=== PATIENT | female | born 1995 | race Caucasian/White ===

== ENCOUNTER 2017-04-14 09:53 | Emergency (ER) | payer OTHER ==
[2017-04-14 10:09] VITALS: BP 132/88; TEMP 98.9; O2SAT 98
--- NOTE | 2017-04-14 10:24 | ED.PDOC ---
History of Present Illness - General Chief Complaint: General Stated Complaint: swollen,painful breasts Time Seen by Provider: 04/14/17 10:21 Source: patient Additional Information: 22 YEAR OLD WHITE FEMALE WHO IS HAD DELIVERED 4 DAYS AGO DECIDED NOT TO BREAST FEED NOW PRESENTS WITH PAINFUL BREAST WORSE LAST DAY NO FEVER CHILLS INVOLVES BOTH BREASTS SHE HAD NOT APPLIED ANY PRESSURE BANDAGE NEITHER PUMPED OUT THE BREAST - History of Present Illness Timing/Duration: 24 hours Severity: moderate Improving Factors: nothing Worsening Factors: nothing Associated Symptoms: denies symptoms Allergies/Adverse Reactions: Allergies NO KNOWN ALLERGY Allergy (Verified 05/09/14 22:15) Home Medications: Ambulatory Orders Acetamin W/Cod #3 Tab [Tylenol w/CODEINE #3] 1 ea PO Q6HR PRN #40 tab 04/14/17 Docusate Sodium [Stool Softener] 100 mg PO BID 04/14/17 Ibuprofen [Motrin] 800 mg PO Q8H 04/14/17 Review of Systems - Review of Systems Constitutional: States: no symptoms reported EENTM: States: no symptoms reported Respiratory: States: no symptoms reported Cardiology: States: no symptoms reported Gastrointestinal/Abdominal: States: no symptoms reported Genitourinary: States: no symptoms reported Musculoskeletal: States: no symptoms reported Skin: States: no symptoms reported Neurological: States: no symptoms reported Endocrine: States: no symptoms reported Hematologic/Lymphatic: States: no symptoms reported Past Medical History (General) - Patient Medical History Hx Stroke: No Hx Asthma: No Hx Congestive Heart Failure: No Hx Diabetes: No Hx Renal Disease: No Surgical History: no surgical history - Vaccination History Hx Tetanus, Diphtheria Vaccination: No Hx Influenza Vaccination: Yes Hx Pneumococcal Vaccination: No - Social History Hx Tobacco Use: No Hx Alcohol Use: Yes Hx Substance Use: No Hx Substance Use Treatment: No Hx Depression: No - Female History Patient is a Female of Child Bearing Age (10 -59 yrs old): Yes - post- 4 days Hx Last Menstrual Period: 05/10/13 Patient : No Expected Date of Delivery:: 02/16/14 Family Medical History - Family History Mother Family History: No Known Name: Arielle Jordan Living Status: Still Living Father Family History: No Known Name: Santiago Kita Living Status: Still Living Physical Exam - Physical Exam Eye Exam: bilateral normal Ears, Nose, Throat: hearing grossly normal, normal ENT inspection, normal pharynx Neck: non-tender, full range of motion, supple Respiratory: chest non-tender, lungs clear, normal breath sounds, no respiratory distress, no accessory muscle use - BREAST EXAM ENGORGED NO ABNORMAL BREAST DISCHARGE NO LOCAL TENDERNESS NO LYMPHADENOPATHY Cardiovascular/Chest: normal peripheral pulses, regular rate, rhythm, no edema Extremity: normal range of motion, non-tender, normal inspection Departure - Departure Clinical Impression: mastalgia Time of Disposition: 11:19 Disposition: Discharge to Home or Self Care Condition: Good Departure Forms: ED Discharge - Pt. Copy, Patient Portal Self Enrollment Diet: resume usual diet Referrals: LATANYA OREILLY MD [Primary Care Provider] - 1-2 Weeks Prescriptions: Acetamin W/Cod #3 Tab [Tylenol w/CODEINE #3] 1 ea PO Q6HR PRN #40 tab PRN Reason: Mild To Moderate Pain Home Medications: Ambulatory Orders Acetamin W/Cod #3 Tab [Tylenol w/CODEINE #3] 1 ea PO Q6HR PRN #40 tab 04/14/17 Docusate Sodium [Stool Softener] 100 mg PO BID 04/14/17 Ibuprofen [Motrin] 800 mg PO Q8H 04/14/17
== END 2017-04-14 11:24 | disposition home or self-care (01) ==
LOC: ER 09:53
DX: O91.22 Nonpurulent mastitis associated with the puerperium (principal)

== ENCOUNTER 2018-01-23 08:49 | Emergency (ER) | payer SELFPAY ==
[2018-01-23] MEDS ORDERED: ONDANSETRON ODT 8 MG TAB SL ONE (09:04)
[2018-01-23] MEDS ORDERED: SODIUM CHLORIDE 0.9% 1000ML 1,000 ML IVS ONE (09:04)
--- NOTE | 2018-01-23 10:52 | RAD ---
EXAM DESCRIPTION: Abdomen Series CLINICAL HISTORY: nv. ruq pain COMPARISON: None. FINDINGS: AP supine and upright views of the abdomen show a nonspecific, nonobstructive bowel gas pattern with no evidence for free intraperitoneal air. No air-filled dilated loops of small bowel are seen. No significant air-fluid levels are identified. No obvious organomegaly is seen. No abnormal calcifications are seen in the expected location of the renal collecting systems. Single view of the chest shows cardiac silhouette and pulmonary vasculature to be within normal limits. Lungs are normally aerated and clear IMPRESSION: Nonspecific abdominal series Electronically signed by: Dylon De Luna MD 01/23/2018 10:51 AM PATIENT RELATIONS COORDINATOR
--- NOTE | 2018-01-23 11:18 | US ---
EXAM DESCRIPTION: Abdomen,Limited CLINICAL HISTORY: ruq pain, nv 4d, elev lft COMPARISON: None. TECHNIQUE: Real-time sonographic images of the right upper quadrant of the abdomen are obtained. FINDINGS: Pancreas is unremarkable. The right lobe of the liver measures 16.9cm. The liver is diffusely homogeneous and normal in echogenicity. No focal hepatic mass is seen. The gallbladder is normally distended and contains multiple mobile foci of increased echogenicity with posterior acoustic shadowing.. No gallbladder wall thickening or pericholecystic fluid is seen. The common bile duct measures 7-10 mm in greatest diameter. Intrahepatic biliary ductal dilatation is seen. The right kidney measures 10.2 cm and is unremarkable. Visualized IVC and abdominal aorta are within normal limits. IMPRESSION: Cholelithiasis without ultrasound evidence of acute cholecystitis. Intra and extrahepatic biliary ductal dilatation is seen with common bile duct measuring up to 10 mm. This is worrisome for choledocholithiasis which is not seen on ultrasound imaging. Electronically signed by: Dylon De Luna MD 01/23/2018 11:16 AM [facility]
[2018-01-23] MEDS ORDERED: cefTRIAXone SODIUM 1 GM in SODIUM CHL 0.9% 50ML MIN-BAG+ 50 ML IVPB ONE (12:20)
[2018-01-23] MEDS ORDERED: cefTRIAXone SODIUM 1 GM VIAL ONE (12:23)
--- NOTE | 2018-01-23 12:23 | ED.PDOC ---
History of Present Illness - General Chief Complaint: Abdominal Pain Stated Complaint: abd pain/n/v Time Seen by Provider: 01/23/18 08:57 Source: patient Exam Limitations: no limitations - History of Present Illness Initial Comments: he patient to 22-year-old female presenting to the emergency secondary to right upper quadrant discomfort made worse by eating with associated nausea and vomiting. No fevers. Minimal pain to palpation of the right upper quadrant. Previously healthy. She does take control pills. No diarrhea. Timing/Duration: other - 4 days Severity: moderate Improving Factors: nothing - 4 days Worsening Factors: nothing Associated Symptoms: loss of appetite, malaise, nausea/vomiting Allergies/Adverse Reactions: Allergies NO KNOWN ALLERGY Allergy (Verified 01/23/18 09:01) Review of Systems - Review of Systems Constitutional: States: malaise EENTM: States: no symptoms reported Respiratory: States: no symptoms reported Cardiology: States: no symptoms reported Gastrointestinal/Abdominal: States: abdominal pain, constipation, nausea, vomiting Musculoskeletal: States: no symptoms reported Skin: States: no symptoms reported Neurological: States: no symptoms reported Endocrine: States: no symptoms reported All other Systems: No Change from Baseline Past Medical History (General) - Patient Medical History Hx Stroke: No Hx Asthma: No Hx Congestive Heart Failure: No Hx Diabetes: No Hx Renal Disease: No Surgical History: no surgical history - Vaccination History Hx Tetanus, Diphtheria Vaccination: No Hx Influenza Vaccination: No Hx Pneumococcal Vaccination: No Immunizations Up to Date: No - Social History Hx Tobacco Use: No Hx Alcohol Use: No Hx Substance Use: No Hx Substance Use Treatment: No Hx Depression: No - Female History Patient is a Female of Child Bearing Age (10 -59 yrs old): Yes Hx Last Menstrual Period: 05/10/13 Patient : No Expected Date of Delivery:: 02/16/14 Family Medical History - Family History Mother Family History: No Known Name: Arielle Jordan Living Status: Still Living Father Family History: No Known Name: Santiago East Living Status: Still Living Physical Exam - Physical Exam General Appearance: Alert, No apparent distress Eye Exam: bilateral normal Ears, Nose, Throat: normal ENT inspection, normal pharynx Neck: full range of motion, supple Respiratory: lungs clear, normal breath sounds, no respiratory distress, no accessory muscle use Cardiovascular/Chest: normal peripheral pulses, regular rate, rhythm, no edema Peripheral Pulses: radial,right: 2+, radial,left: 2+, dorsalis pedis,right: 2+, dorsalis pedis,left: 2+ Gastrointestinal/Abdominal: non tender - mild right upper quadrant discomfort but not consistent with peritonitis, soft Rectal Exam: deferred Back Exam: normal inspection, no CVA tenderness, no vertebral tenderness Extremity: normal range of motion, non-tender, normal inspection, no pedal edema , normal capillary refill Neurologic: real estate photographer II-XII nml as tested, alert, normal mood/affect, oriented x 3 Skin Exam: normal color Comments: Vital Signs - 24 hr 01/23/18 01/23/18 08:57 10:44 Temperature 98.0 F Pulse Rate [ 88 60 monitor] Respiratory 18 20 Rate Blood Pressure 125/87 127/82 [LA] O2 Sat by Pulse 98 99 Oximetry Progress - Progress Progress: 01/23/18 12:24 the patient's 22-year-old female presenting to the emergency roomwith right upper quadrant pain and nausea and vomiting of 4 days' duration. She has received a liter of IV fluids and a dose of Zofran. This has helped. Workup appears to show choledocholithiasis. There does not appear to be any significant infection at this time in regard to the gallbladder however the patient is receiving a dose of Rocephin prophylactically as well as for treatment of what appears to be a small urinary tract infection. The patient will be transferred to [facility] for GI evaluation with possible ERCP. Transferring for higher level of care. - Results/Orders Results/Orders: Laboratory Tests 01/23/18 01/23/18 01/23/18 09:03 09:10 09:43 WBC RBC Hgb Hct MCV MCH MCHC RDW Plt Count MPV Absolute Neuts (auto) Absolute Lymphs (auto) Absolute Monos (auto) Absolute Eos (auto) Absolute Basos (auto) Neutrophils % Lymphocytes % Monocytes % Eosinophils % Basophils % Sodium 136 Potassium 3.7 Chloride 103 Carbon Dioxide 23 Anion Gap 13.7 BUN 10 Creatinine 0.76 BUN/Creatinine Ratio 13.2 Random Glucose 79 Serum Osmolality 269.9 L Calcium 9.1 Total Bilirubin 1.5 H AST 126 H ALT 175 H Alkaline Phosphatase 62 Serum Total Protein 7.5 Albumin 4.1 Globulin 3.4 Albumin/Globulin Ratio 1.2 Amylase 32 Lipase 25 TSH 1.82 Serum HCG, Qual Negative Urine Color [place] H Urine Appearance Cloudy Urine pH 5.5 Ur Specific [place] >= 1.030 Urine Protein 30 Urine Glucose (UA) Negative Urine Ketones 40 H Urine Blood Small H Urine Nitrite Negative Urine Bilirubin Large Urine Urobilinogen 1.0 Ur Leukocyte Esterase Small H Urine RBC 5-10 H Urine WBC 5-10 H Ur Epithelial Cells 5-10 Urine Bacteria Rare 01/23/18 09:55 WBC 5.3 RBC 4.95 Hgb 14.7 Hct 44.4 MCV 89.6 MCH 29.6 MCHC 33.0 RDW 12.8 Plt Count 214 MPV 9.2 Absolute Neuts (auto) 2.80 Absolute Lymphs (auto) 1.80 Absolute Monos (auto) 0.50 Absolute Eos (auto) 0.20 Absolute Basos (auto) 0.00 Neutrophils % 52.9 Lymphocytes % 33.9 Monocytes % 9.3 H Eosinophils % 3.2 Basophils % 0.7 Sodium Potassium Chloride Carbon Dioxide Anion Gap BUN Creatinine BUN/Creatinine Ratio Random Glucose Serum Osmolality Calcium Total Bilirubin AST ALT Alkaline Phosphatase Serum Total Protein Albumin Globulin Albumin/Globulin Ratio Amylase Lipase TSH Serum HCG, Qual Urine Color Urine Appearance Urine pH Ur Specific [place] Urine Protein Urine Glucose (UA) Urine Ketones Urine Blood Urine Nitrite Urine Bilirubin Urine Urobilinogen Ur Leukocyte Esterase Urine RBC Urine WBC Ur Epithelial Cells Urine Bacteria right upper quadrant ultrasound shows what appears to be choledocholithiasis without cholecystitis. Common bile duct measures up to 1 cm with associated intrahepatic biliary ductal dilation. There are gallstones in the gallbladder. Departure - Departure Clinical Impression: Choledocholithiasis, Cystitis Disposition: Transfer to Hospital Referrals: Freya Lugo NP [Primary Care Provider] - 1-2 Weeks Transfer to Outside Facility - Transfer Information Accepting Provider:: dr triana/nini Accepting Facility: [facility] Reason for Transfer: required specialist not available
[2018-01-23] MEDS ORDERED: SODIUM CHL 0.9% 50ML MIN-BAG+ 50 ML IVPB ONE (12:24)
[2018-01-23 12:56] VITALS: BP 135/85; TEMP 98.2; O2SAT 100
== END 2018-01-23 12:56 | disposition short-term general hospital (02) ==
LOC: ER 08:49
DX: K80.20 Calculus of gallbladder without cholecystitis without obstruction (principal); N30.00 Acute cystitis without hematuria; R11.2 Nausea with vomiting, unspecified
CPT/HCPCS: 74019; 76775; 80053; 81001; 82150; 83690; 84443; 84703; 85025; J0696; J7030; J7050

== ENCOUNTER 2019-02-26 16:42 | Emergency (ER) | payer SELFPAY ==
[2019-02-26 16:56] VITALS: BP 161/109; TEMP 98.2; O2SAT 98
--- NOTE | 2019-02-26 17:04 | ED.PDOC ---
History of Present Illness - General Chief Complaint: Dental/Mouth Stated Complaint: right lower jaw pain Time Seen by Provider: 02/26/19 17:01 Source: patient - History of Present Illness Initial Comments: 24-year-old female presents to the emergency department complaining of right lower jaw pain that has been progressively worsening over the last 2-3 days. She has a broken tooth in the area and reports over the last 2 years she'll have intermittent pain but usually goes away however this time it has not. She has an appointment with the dentist 03/02/19 at the old her to see a doctor about her pain today. She denies any fever or chills. She reports associated nausea but denies any vomiting. She has no other complaints at this time. Allergies/Adverse Reactions: Allergies NO KNOWN ALLERGY Allergy (Verified 01/23/18 09:01) Home Medications: Ambulatory Orders Acetaminophen W/ Codeine [Tylenol W/ CODEINE #3] 1 ea PO Q8H PRN #15 02/26/19 Clindamycin HCl 300 mg PO Q8H #30 cap 02/26/19 Review of Systems - Review of Systems Constitutional: Denies: chills, fever EENTM: States: other - dental pain. Denies: nose congestion Gastrointestinal/Abdominal: States: nausea. Denies: vomiting Skin: Denies: lesions, rash Past Medical History (General) - Patient Medical History Hx Stroke: No Hx Asthma: No Hx Congestive Heart Failure: No Hx Diabetes: No Hx Renal Disease: No Surgical History: cholecystectomy - Vaccination History Hx Tetanus, Diphtheria Vaccination: No Hx Influenza Vaccination: No Hx Pneumococcal Vaccination: No - Social History Hx Tobacco Use: No Hx Alcohol Use: No Hx Substance Use: No Hx Substance Use Treatment: No Hx Depression: No - Female History Hx Last Menstrual Period: 05/10/13 Patient : No Expected Date of Delivery:: 02/16/14 Family Medical History - Family History Mother Family History: No Known Name: Arielle Jordan Living Status: Still Living Father Family History: No Known Name: Santiago East Living Status: Still Living Physical Exam - Physical Exam General Appearance: Alert, Well Developed, Well Nourished Eye Exam: bilateral normal Ears, Nose, Throat: normal pharynx, other - Diffuse dental caries and tooth #30 is broken and tender. There is some erythema of the gum but no periapical abscess. No elevation of the tongue Neck: supple, other - No cervical adenopathy Respiratory: lungs clear, normal breath sounds Cardiovascular/Chest: regular rate, rhythm Neurologic: alert, other - No focal deficits. Comments: Vital Signs - 24 hr 02/26/19 16:45 Temperature 98.2 F Pulse Rate [ 75 left brachial] Respiratory 20 Rate Blood Pressure 161/109 [left brachial] O2 Sat by Pulse 98 Oximetry Progress - Progress Progress: 02/26/19 17:05 The patient was seen and evaluated in the emergency department. Her exam findings are consistent with dental caries and dental pain. At this time she'll be discharged home with a prescription for pain medication as well as antibiotics. She is encouraged to follow up with the dentist Saturday morning as scheduled. She is to return to the emergency department for any significant worsening symptoms or other concerns. The patient has voiced understanding and agrees with the treatment plan and all questions and concerns were addressed. Departure - Departure Clinical Impression: Chronic dental pain, Dental caries Time of Disposition: 17:06 Disposition: Discharge to Home or Self Care Condition: Good Departure Forms: ED Discharge - Pt. Copy, Patient Portal Self Enrollment Instructions: DI for Dental Pain Prescriptions: Acetaminophen W/ Codeine [Tylenol W/ CODEINE #3] 1 ea PO Q8H PRN #15 PRN Reason: Pain Clindamycin HCl 300 mg PO Q8H #30 cap Home Medications: Ambulatory Orders Acetaminophen W/ Codeine [Tylenol W/ CODEINE #3] 1 ea PO Q8H PRN #15 02/26/19 Clindamycin HCl 300 mg PO Q8H #30 cap 02/26/19 Additional Instructions: Take medications as directed. Follow-up with your dentist on 03/02/19 as directed. Return to the emergency department immediately for any worsening of symptoms or other concerns.
== END 2019-02-26 17:17 | disposition home or self-care (01) ==
LOC: ER 16:42
DX: J02.9 Acute pharyngitis, unspecified (principal); S02.5XXA Fracture of tooth (traumatic), initial encounter for closed fracture; R11.0 Nausea; X58.XXXA Exposure to other specified factors, initial encounter; Y92.9 Unspecified place or not applicable